=== PATIENT | male | born 1940 | race Two or more races ===

== ENCOUNTER 2022-01-30 16:46 | Inpatient (IN) | payer MEDICARE, OTHER ==
[~2022-01-30] VITALS: Ht 170.2 cm; Wt 96.6 kg
[2022-01-30 18:30] LABS: BASOPHILS % 0.5 % (0.0-2.0); HEMATOCRIT. 42.1 % (42.0-52.0); HEMOGLOBIN. 13.9 g/dL (14.0-18.0); LYMPHOCYTES % 12.6 % (20.0-50.0); MEAN CORPUSCULAR HEMOGLOBIN 32.1 pg (28.0-32.0); MEAN CORPUSCULAR VOLUME 97.1 fL (80.0-94.0); MEAN PLATELET VOLUME 8.7 fl (7.4-10.4); MONOCYTES % 5.5 % (2.0-8.0); NEUTROPHILS % 80.4 % (40.0-76.0); PLATELET 253 x1000/uL (130-400); RED BLOOD CELL COUNT 4.33 mill/uL (4.7-6.1); RED CELL DISTRIBUTION WIDTH 14.7 % (11.6-14.6)
[2022-01-30 18:33] LABS: CHLORIDE 109 mEq/L (98-107)
[2022-01-30 18:36] LABS: PROTHROMBIN TIME 10.7 sec (9.6-11.0)
[2022-01-30 18:41] LABS: ETHANOL BLOOD 20 mg/dL
[2022-01-30] MEDS ORDERED: ACETAMINOPHEN 325MG TABLET PO PRN (21:15)
[2022-01-30] MEDS ORDERED: MAGNESIUM/ALUMINUM HYDROXIDE/SIMETHICONE 30ML UDC PO PRN (21:15)
[2022-01-30] MEDS ORDERED: GUAIFENESIN 200MG/10ML SUGAR FREE UDC PO PRN (21:15)
[2022-01-30] MEDS ORDERED: ONDANSETRON HCL 4MG/2ML INJ IV PRN (21:15)
[2022-01-30 22:15] LABS: PHOSPHORUS 1.4 mg/dL (2.5-4.9)
[2022-01-30 22:52] LABS: VITAMIN B12 SERUM 334 pg/mL (211-911)
[2022-01-30 23:22] LABS: CLARITY URINE CLEAR (CLEAR); COLOR URINE YELLOW (YELLOW); KETONES URINE TRACE (NEGATIVE); LEUKOCYTE ESTERASE URINE NEGATIVE (NEGATIVE); NITRITE URINE NEGATIVE (NEGATIVE); OCCULT BLOOD URINE NEGATIVE (NEGATIVE); PH URINE 5.5 (4.5-8.0); PROTEIN URINE 2+ (NEGATIVE); SPECIFIC GRAVITY URINE 1.021 (1.005-1.030)
[2022-01-30] MEDS ORDERED: ASPIRIN 325MG EC TABLET PO NR (23:30)
[2022-01-31 00:09] LABS: *AMPHETAMINES SCREEN URINE NEGATIVE (NEGATIVE); *BARBITURATES SCREEN URINE NEGATIVE (NEGATIVE); *BENZODIAZEPINES SCREEN URINE NEGATIVE (NEGATIVE); *COCAINE SCREEN URINE NEGATIVE (NEGATIVE); CANNABINOID URINE SCREEN NEGATIVE (NEGATIVE); METHADONE URINE SCREEN NEGATIVE (NEGATIVE); OPIATES URINE SCREEN NEGATIVE (NEGATIVE); PHENCYCLIDINE URINE SCREEN NEGATIVE (NEGATIVE)
[2022-01-31] MEDS ORDERED: AMLODIPINE 10MG TABLET PO ONE (01:15)
[2022-01-31] MEDS ORDERED: AMLODIPINE 5MG TABLET PO NR (01:15)
[2022-01-31 04:56] LABS: BASOPHILS % 0.6 % (0.0-2.0); EOSINOPHILS % 2.5 % (0.0-5.0); HEMATOCRIT. 40.1 % (42.0-52.0); HEMOGLOBIN. 13.5 g/dL (14.0-18.0); LYMPHOCYTES % 19.9 % (20.0-50.0); MEAN CORPUSCULAR VOLUME 95.5 fL (80.0-94.0); MONOCYTES % 9.7 % (2.0-8.0); NEUTROPHILS % 67.3 % (40.0-76.0); RED CELL DISTRIBUTION WIDTH 14.4 % (11.6-14.6)
[2022-01-31 05:22] LABS: CHLORIDE 111 mEq/L (98-107)
[2022-01-31 05:44] LABS: HDL CHOLESTEROL 44 mg/dL (40-59); LDL CHOLESTEROL 64 mg/dL (5-100); T4 FREE 0.87 ng/dL (0.76-1.46)
[2022-01-31 05:46] LABS: D-DIMER 1.84 mg/L FEU (<0.50); PROTHROMBIN TIME 10.8 sec (9.6-11.0)
[2022-01-31 06:07] LABS: CREATINE KINASE MB FRACTION 1.2 ng/mL (0.5-3.6)
[2022-01-31] MEDS: FOLIC ACID 1MG TABLET PO SCH (08:00)
[2022-01-31] MEDS ORDERED: POTASSIUM-SODIUM PHOSPHATE POWDER PACKET PO NR (08:00)
[2022-01-31] MEDS: FAMOTIDINE 20MG TABLET PO SCH ×2 (09:55→22:34)
[2022-01-31] MEDS: ENOXAPARIN 40MG/0.4ML SYR SUBCUT SCH (09:56)
[2022-01-31] MEDS: IPRATROPIUM/ALBUTEROL 0.5-3(2.5)MG/3ML NEB HHN SCH ×3 (10:00→21:07)
[2022-01-31] MEDS ORDERED: DEXTROSE 50% WATER 50ML SYRINGE IV PRN (11:00)
[2022-01-31] MEDS: BLOOD SUGAR DIAGNOSTIC STRIP TEST SCH ×3 (11:30→21:33)
[2022-01-31 12:00] LABS: MEAN PLATELET VOLUME 8.4 fl (7.4-10.4); PLATELET 241 x1000/uL (130-400)
[2022-01-31] MEDS: INSULIN LISPRO 100 UNITS/ML SUBCUT SCH ×3 (12:00→21:00)
[2022-01-31] MEDS ORDERED: SODIUM CHLORIDE 0.45% 1,000 ML IV NR (13:15)
[2022-01-31 14:42] VITALS: BP 138/73
[2022-01-31 14:58] VITALS: BP 138/73
[2022-01-31 16:00] VITALS: BP 140/83
[2022-01-31] MEDS ORDERED: TOPUD PO (16:38)
[2022-01-31] MEDS ORDERED: LISI20TA31 PO (16:38)
[2022-01-31] MEDS ORDERED: TAMS-11 PO (16:38)
[2022-01-31] MEDS ORDERED: LACT1CAP68 PO (16:38)
[2022-01-31] MEDS ORDERED: NETA2.5D EACHEYE (16:43)
[2022-01-31] MEDS ORDERED: DORZ10DR12 LEFTEYE (16:43)
[2022-01-31] MEDS ORDERED: BRIM5DRO6 RIGHTEYE (16:43)
[2022-01-31] MEDS: ASPIRIN 81MG TABLET PO SCH (16:54)
[2022-01-31] MEDS: LISINOPRIL 20MG TABLET PO SCH (16:55)
[2022-01-31 20:00] VITALS: BP 138/71
[2022-01-31] MEDS: ATORVASTATIN CALCIUM 40MG TABLET PO SCH (22:34)
[2022-02-01] VITALS (8 sets, daily range): BP systolic 121–161; BP diastolic 50–98
[2022-02-01] MEDS: IPRATROPIUM/ALBUTEROL 0.5-3(2.5)MG/3ML NEB HHN SCH ×4 (02:53→21:15)
[2022-02-01 06:35] LABS: HEMATOCRIT 39.7 % (42.0-52.0); HEMOGLOBIN 13.1 g/dL (14.0-18.0); MEAN CORPUSCULAR HEMOGLOBIN 31.8 pg (28.0-32.0); MEAN CORPUSCULAR VOLUME 96.4 fL (80.0-94.0); PLATELET 252 x1000/uL (130-400); RED BLOOD CELL COUNT 4.12 mill/uL (4.7-6.1); RED CELL DISTRIBUTION WIDTH 14.5 % (11.6-14.6)
[2022-02-01] MEDS: BLOOD SUGAR DIAGNOSTIC STRIP TEST SCH ×4 (06:40→20:40)
[2022-02-01] MEDS: INSULIN LISPRO 100 UNITS/ML SUBCUT SCH ×4 (07:20→20:42)
[2022-02-01 07:32] LABS: CHLORIDE 107 mEq/L (98-107)
[2022-02-01 07:41] LABS: PHOSPHORUS 2.9 mg/dL (2.5-4.9)
[2022-02-01] MEDS: FAMOTIDINE 20MG TABLET PO SCH ×2 (08:35→20:43)
[2022-02-01] MEDS: ASPIRIN 81MG TABLET PO SCH (08:35)
[2022-02-01] MEDS: FOLIC ACID 1MG TABLET PO SCH (08:35)
[2022-02-01] MEDS: LISINOPRIL 20MG TABLET PO SCH (08:36)
[2022-02-01] MEDS: ENOXAPARIN 40MG/0.4ML SYR SUBCUT SCH (08:36)
[2022-02-01] MEDS: TAMSULOSIN HCL 0.4MG SR CAPSULE PO SCH (13:37)
[2022-02-01] MEDS ORDERED: LIDOCAINE HCL 1% 10 MG/ML 10ML VIAL IJ NR (18:45)
[2022-02-01 20:04] LABS: HEMATOCRIT 46.8 % (42.0-52.0); HEMOGLOBIN 14.9 g/dL (14.0-18.0); MEAN CORPUSCULAR HEMOGLOBIN 31.5 pg (28.0-32.0); MEAN CORPUSCULAR VOLUME 98.8 fL (80.0-94.0); PLATELET 226 x1000/uL (130-400); RED BLOOD CELL COUNT 4.74 mill/uL (4.7-6.1); RED CELL DISTRIBUTION WIDTH 14.7 % (11.6-14.6)
[2022-02-01] MEDS ORDERED: LORAZEPAM 0.5MG TABLET PO PRN (20:15)
[2022-02-01 20:22] LABS: CHLORIDE 108 mEq/L (98-107)
[2022-02-01] MEDS: LEVOFLOXACIN 500MG TABLET PO SCH (20:23)
[2022-02-01] MEDS: SODIUM CHLORIDE 0.45% 1,000 ML IV SCH (20:26)
[2022-02-01] MEDS: ATORVASTATIN CALCIUM 40MG TABLET PO SCH (20:42)
[2022-02-01] MEDS: THIAMINE HCL 100MG TABLET PO SCH (20:43)
[2022-02-01] MEDS: BRIMONIDINE 0.2% OPHTH DROPS 5ML RIGHTEYE SCH (23:27)
[2022-02-01] MEDS: DORZOLAM/TIMOLOL 2.23/0.68% OPHTH DROPS 10ML LEFTEYE SCH (23:29)
[2022-02-01] MEDS: NETARSUDIL MESYLATE 0.02% OP SCH (23:30)
[2022-02-01] MEDS: ACETAMINOPHEN 325MG TABLET PO PRN (23:40)
[2022-02-02] VITALS: BP 145/79
[2022-02-02 04:00] VITALS: BP 138/69
[2022-02-02] MEDS: BLOOD SUGAR DIAGNOSTIC STRIP TEST SCH ×4 (06:04→21:44)
[2022-02-02 06:56] LABS: HEMATOCRIT 39.6 % (42.0-52.0); HEMOGLOBIN 13.3 g/dL (14.0-18.0); MEAN CORPUSCULAR HEMOGLOBIN 32.4 pg (28.0-32.0); MEAN CORPUSCULAR VOLUME 96.3 fL (80.0-94.0); PLATELET 215 x1000/uL (130-400); RED BLOOD CELL COUNT 4.11 mill/uL (4.7-6.1); RED CELL DISTRIBUTION WIDTH 14.4 % (11.6-14.6)
[2022-02-02] MEDS: INSULIN LISPRO 100 UNITS/ML SUBCUT SCH ×4 (07:20→21:00)
[2022-02-02 08:00] VITALS: BP 142/66
[2022-02-02] MEDS: TAMSULOSIN HCL 0.4MG SR CAPSULE PO SCH (08:56)
[2022-02-02] MEDS: FOLIC ACID 1MG TABLET PO SCH (08:56)
[2022-02-02] MEDS: ACETAMINOPHEN 325MG TABLET PO PRN ×2 (08:56→17:37)
[2022-02-02] MEDS: THIAMINE HCL 100MG TABLET PO SCH (08:56)
[2022-02-02] MEDS: LISINOPRIL 20MG TABLET PO SCH (08:56)
[2022-02-02] MEDS: ASPIRIN 81MG TABLET PO SCH (08:56)
[2022-02-02] MEDS: FAMOTIDINE 20MG TABLET PO SCH ×2 (08:56→21:31)
[2022-02-02] MEDS: DORZOLAM/TIMOLOL 2.23/0.68% OPHTH DROPS 10ML LEFTEYE SCH ×2 (08:57→21:31)
[2022-02-02] MEDS: BRIMONIDINE 0.2% OPHTH DROPS 5ML RIGHTEYE SCH ×3 (08:57→16:56)
[2022-02-02] MEDS: IPRATROPIUM/ALBUTEROL 0.5-3(2.5)MG/3ML NEB HHN SCH ×2 (09:31→20:58)
[2022-02-02 12:00] VITALS: BP 123/68
[2022-02-02] MEDS: LEVOFLOXACIN 500MG TABLET PO SCH (12:55)
[2022-02-02] MEDS: SODIUM CHLORIDE 0.45% 1,000 ML IV SCH (12:56)
[2022-02-02 13:06] LABS: VITAMIN D 1-25 DIHYDROXY 61.5 pg/mL (24.8-81.5)
[2022-02-02] MEDS ORDERED: LIDOCAINE HCL 2% JELLY 5ML ONE (14:47)
[2022-02-02 16:00] VITALS: BP 147/72
[2022-02-02 18:36] LABS: HEMATOCRIT 41.6 % (42.0-52.0); HEMOGLOBIN 13.9 g/dL (14.0-18.0)
[2022-02-02 20:00] VITALS: BP 157/74
[2022-02-02] MEDS ORDERED: IBUPROFEN 800MG TABLET PO NR (21:30)
[2022-02-02] MEDS: ATORVASTATIN CALCIUM 40MG TABLET PO SCH (21:30)
[2022-02-02] MEDS: CLONIDINE 0.1MG TABLET PO PRN (21:36)
[2022-02-02] MEDS: NETARSUDIL MESYLATE 0.02% OP SCH (21:43)
[2022-02-03] VITALS (7 sets, daily range): BP systolic 111–152; BP diastolic 54–91
[2022-02-03] MEDS: IPRATROPIUM/ALBUTEROL 0.5-3(2.5)MG/3ML NEB HHN SCH ×4 (01:22→20:36)
[2022-02-03 06:10] LABS: BASOPHILS % 0.5 % (0.0-2.0); EOSINOPHILS % 1.1 % (0.0-5.0); HEMOGLOBIN. 13.3 g/dL (14.0-18.0); MEAN CORPUSCULAR HEMOGLOBIN 31.8 pg (28.0-32.0); MEAN CORPUSCULAR VOLUME 95.6 fL (80.0-94.0); MEAN PLATELET VOLUME 8.2 fl (7.4-10.4); MONOCYTES % 8.5 % (2.0-8.0); NEUTROPHILS % 71.9 % (40.0-76.0); PLATELET 241 x1000/uL (130-400); RED BLOOD CELL COUNT 4.18 mill/uL (4.7-6.1); RED CELL DISTRIBUTION WIDTH 14.4 % (11.6-14.6)
[2022-02-03] MEDS: ACETAMINOPHEN 325MG TABLET PO PRN (06:34)
[2022-02-03] MEDS: INSULIN LISPRO 100 UNITS/ML SUBCUT SCH ×4 (06:52→22:24)
[2022-02-03] MEDS: BLOOD SUGAR DIAGNOSTIC STRIP TEST SCH ×4 (06:52→22:00)
[2022-02-03] MEDS ORDERED: SODIUM CHLORIDE 0.45% 1,000 ML IV ONE (07:45)
[2022-02-03] MEDS: FOLIC ACID 1MG TABLET PO SCH (09:40)
[2022-02-03] MEDS: ASPIRIN 81MG TABLET PO SCH (09:40)
[2022-02-03] MEDS: TAMSULOSIN HCL 0.4MG SR CAPSULE PO SCH (09:40)
[2022-02-03] MEDS: LISINOPRIL 20MG TABLET PO SCH (09:40)
[2022-02-03] MEDS: DOCUSATE SODIUM 100MG CAPSULE PO PRN (09:40)
[2022-02-03] MEDS: FAMOTIDINE 20MG TABLET PO SCH (09:41)
[2022-02-03] MEDS: THIAMINE HCL 100MG TABLET PO SCH (09:41)
[2022-02-03] MEDS: BRIMONIDINE 0.2% OPHTH DROPS 5ML RIGHTEYE SCH ×3 (09:42→17:54)
[2022-02-03] MEDS: DORZOLAM/TIMOLOL 2.23/0.68% OPHTH DROPS 10ML LEFTEYE SCH ×2 (09:42→22:24)
[2022-02-03] MEDS ORDERED: NALOXONE HCL 0.4MG/ML VIAL IV PRN (11:45)
[2022-02-03] MEDS: LEVOFLOXACIN 250MG TABLET PO SCH (11:49)
[2022-02-03] MEDS: HYDROCODONE/ACETAMINOPHEN 5/325MG TABLET PO PRN ×2 (11:49→22:25)
[2022-02-03] MEDS: ATORVASTATIN CALCIUM 40MG TABLET PO SCH (22:24)
[2022-02-03] MEDS: NETARSUDIL MESYLATE 0.02% OP SCH (22:24)
[2022-02-04] VITALS: BP 116/56
[2022-02-04] MEDS: IPRATROPIUM/ALBUTEROL 0.5-3(2.5)MG/3ML NEB HHN SCH ×4 (02:08→21:20)
[2022-02-04 04:00] VITALS: BP 134/61
[2022-02-04 07:00] LABS: BASOPHILS % 0.6 % (0.0-2.0); EOSINOPHILS % 2.6 % (0.0-5.0); HEMATOCRIT. 40.9 % (42.0-52.0); HEMOGLOBIN. 13.5 g/dL (14.0-18.0); LYMPHOCYTES % 23.7 % (20.0-50.0); MEAN CORPUSCULAR HEMOGLOBIN 32.1 pg (28.0-32.0); MEAN CORPUSCULAR VOLUME 96.9 fL (80.0-94.0); MEAN PLATELET VOLUME 8.5 fl (7.4-10.4); MONOCYTES % 9.7 % (2.0-8.0); NEUTROPHILS % 63.4 % (40.0-76.0); PLATELET 245 x1000/uL (130-400); RED BLOOD CELL COUNT 4.22 mill/uL (4.7-6.1); RED CELL DISTRIBUTION WIDTH 14.4 % (11.6-14.6)
[2022-02-04 07:06] LABS: PHOSPHORUS 3.7 mg/dL (2.5-4.9)
[2022-02-04] MEDS: INSULIN LISPRO 100 UNITS/ML SUBCUT SCH ×4 (07:20→20:30)
[2022-02-04] MEDS: BLOOD SUGAR DIAGNOSTIC STRIP TEST SCH ×4 (07:26→20:30)
[2022-02-04 08:00] VITALS: BP 150/71
[2022-02-04] MEDS: ASPIRIN 81MG TABLET PO SCH (09:01)
[2022-02-04] MEDS: DORZOLAM/TIMOLOL 2.23/0.68% OPHTH DROPS 10ML LEFTEYE SCH ×2 (09:01→20:30)
[2022-02-04] MEDS: BRIMONIDINE 0.2% OPHTH DROPS 5ML RIGHTEYE SCH ×3 (09:01→17:55)
[2022-02-04] MEDS: FAMOTIDINE 20MG TABLET PO SCH (09:02)
[2022-02-04] MEDS: LISINOPRIL 20MG TABLET PO SCH (09:02)
[2022-02-04] MEDS: FOLIC ACID 1MG TABLET PO SCH (09:02)
[2022-02-04] MEDS: THIAMINE HCL 100MG TABLET PO SCH (09:02)
[2022-02-04] MEDS: TAMSULOSIN HCL 0.4MG SR CAPSULE PO SCH (09:02)
[2022-02-04] MEDS: HYDROCODONE/ACETAMINOPHEN 5/325MG TABLET PO PRN ×2 (10:25→20:30)
[2022-02-04] MEDS ORDERED: SODIUM CHLORIDE 0.45% 1,000 ML IV ONE (10:30)
[2022-02-04 12:00] VITALS: BP 132/65
[2022-02-04] MEDS: LEVOFLOXACIN 250MG TABLET PO SCH (14:08)
[2022-02-04 16:00] VITALS: BP 141/66
[2022-02-04 20:00] VITALS: BP 138/64
[2022-02-04] MEDS: NETARSUDIL MESYLATE 0.02% OP SCH (20:30)
[2022-02-04] MEDS: ATORVASTATIN CALCIUM 40MG TABLET PO SCH (20:30)
[2022-02-04] MEDS: DEXTROSE 5% WATER 1,000 ML IV SCH (23:06)
[2022-02-05] VITALS: BP 135/62
[2022-02-05] MEDS: IPRATROPIUM/ALBUTEROL 0.5-3(2.5)MG/3ML NEB HHN SCH ×4 (02:40→20:39)
[2022-02-05] MEDS: HYDROCODONE/ACETAMINOPHEN 5/325MG TABLET PO PRN ×3 (03:04→17:27)
[2022-02-05 04:00] VITALS: BP 129/61
[2022-02-05] MEDS: INSULIN LISPRO 100 UNITS/ML SUBCUT SCH ×4 (06:21→20:28)
[2022-02-05] MEDS: BLOOD SUGAR DIAGNOSTIC STRIP TEST SCH ×4 (06:21→20:28)
[2022-02-05 07:15] LABS: BASOPHILS % 0.5 % (0.0-2.0); HEMOGLOBIN. 12.6 g/dL (14.0-18.0); LYMPHOCYTES % 14.8 % (20.0-50.0); MEAN CORPUSCULAR HEMOGLOBIN 32.4 pg (28.0-32.0); MEAN CORPUSCULAR VOLUME 95.4 fL (80.0-94.0); MEAN PLATELET VOLUME 8.2 fl (7.4-10.4); MONOCYTES % 11.5 % (2.0-8.0); NEUTROPHILS % 70.2 % (40.0-76.0); PLATELET 220 x1000/uL (130-400); RED BLOOD CELL COUNT 3.87 mill/uL (4.7-6.1); RED CELL DISTRIBUTION WIDTH 14.3 % (11.6-14.6)
[2022-02-05 08:00] VITALS: BP 137/73
[2022-02-05] MEDS: TAMSULOSIN HCL 0.4MG SR CAPSULE PO SCH (08:32)
[2022-02-05] MEDS: THIAMINE HCL 100MG TABLET PO SCH (08:32)
[2022-02-05] MEDS: FOLIC ACID 1MG TABLET PO SCH (08:32)
[2022-02-05] MEDS: LISINOPRIL 20MG TABLET PO SCH (08:32)
[2022-02-05] MEDS: ASPIRIN 81MG TABLET PO SCH (08:32)
[2022-02-05] MEDS: FAMOTIDINE 20MG TABLET PO SCH (08:32)
[2022-02-05] MEDS: BRIMONIDINE 0.2% OPHTH DROPS 5ML RIGHTEYE SCH ×3 (09:18→17:27)
[2022-02-05] MEDS: DORZOLAM/TIMOLOL 2.23/0.68% OPHTH DROPS 10ML LEFTEYE SCH ×2 (09:18→20:28)
[2022-02-05 12:00] VITALS: BP 115/53
[2022-02-05] MEDS ORDERED: SODIUM CHLORIDE 0.45% 1,000 ML IV ONE (12:00)
[2022-02-05] MEDS: DEXTROSE 5% WATER 1,000 ML IV SCH (15:54)
[2022-02-05 16:00] VITALS: BP 124/61
[2022-02-05 20:00] VITALS: BP 134/81
[2022-02-05] MEDS: NETARSUDIL MESYLATE 0.02% OP SCH (20:28)
[2022-02-05] MEDS: ATORVASTATIN CALCIUM 40MG TABLET PO SCH (20:28)
[2022-02-05] MEDS: MORPHINE SULFATE 2 MG/ML CPJ (NOT FOR IM USE) IV PRN (20:28)
[2022-02-06] VITALS: BP 156/75
[2022-02-06] MEDS: DEXTROSE 5% WATER 1,000 ML IV SCH ×2 (01:44→17:07)
[2022-02-06] MEDS: IPRATROPIUM/ALBUTEROL 0.5-3(2.5)MG/3ML NEB HHN SCH ×4 (01:48→21:05)
[2022-02-06 04:00] VITALS: BP 144/62
[2022-02-06 05:30] LABS: HEMOGLOBIN 13.1 g/dL (14.0-18.0); MEAN CORPUSCULAR VOLUME 95.4 fL (80.0-94.0); PLATELET 206 x1000/uL (130-400); RED BLOOD CELL COUNT 4.09 mill/uL (4.7-6.1); RED CELL DISTRIBUTION WIDTH 14.4 % (11.6-14.6)
[2022-02-06 05:36] LABS: CHLORIDE 106 mEq/L (98-107)
[2022-02-06] MEDS: INSULIN LISPRO 100 UNITS/ML SUBCUT SCH ×4 (06:39→21:00)
[2022-02-06] MEDS: BLOOD SUGAR DIAGNOSTIC STRIP TEST SCH ×4 (06:39→21:08)
[2022-02-06 08:00] VITALS: BP 144/82
[2022-02-06] MEDS: BRIMONIDINE 0.2% OPHTH DROPS 5ML RIGHTEYE SCH ×3 (08:53→17:07)
[2022-02-06] MEDS: DORZOLAM/TIMOLOL 2.23/0.68% OPHTH DROPS 10ML LEFTEYE SCH ×2 (08:53→21:13)
[2022-02-06] MEDS: LISINOPRIL 20MG TABLET PO SCH (08:54)
[2022-02-06] MEDS: THIAMINE HCL 100MG TABLET PO SCH (08:54)
[2022-02-06] MEDS: HYDROCODONE/ACETAMINOPHEN 5/325MG TABLET PO PRN (08:54)
[2022-02-06] MEDS: TAMSULOSIN HCL 0.4MG SR CAPSULE PO SCH (08:54)
[2022-02-06] MEDS: FOLIC ACID 1MG TABLET PO SCH (08:54)
[2022-02-06] MEDS: ASPIRIN 81MG TABLET PO SCH (08:54)
[2022-02-06] MEDS: FAMOTIDINE 20MG TABLET PO SCH (08:56)
[2022-02-06] MEDS: DOCUSATE SODIUM 100MG CAPSULE PO PRN (10:44)
[2022-02-06 12:00] VITALS: BP 107/54
[2022-02-06 16:00] VITALS: BP 124/68
[2022-02-06 20:00] VITALS: BP 118/69
[2022-02-06] MEDS: ATORVASTATIN CALCIUM 40MG TABLET PO SCH (21:13)
[2022-02-06] MEDS: NETARSUDIL MESYLATE 0.02% OP SCH (21:15)
[2022-02-07] VITALS: BP 130/72
[2022-02-07] MEDS: IPRATROPIUM/ALBUTEROL 0.5-3(2.5)MG/3ML NEB HHN SCH ×4 (01:17→21:53)
[2022-02-07] MEDS: HYDROCODONE/ACETAMINOPHEN 5/325MG TABLET PO PRN (01:36)
[2022-02-07 04:00] VITALS: BP 130/67
[2022-02-07] MEDS: DEXTROSE 5% WATER 1,000 ML IV SCH (04:20)
[2022-02-07 05:58] LABS: CHLORIDE 107 mEq/L (98-107)
[2022-02-07 06:14] LABS: BASOPHILS % 0.5 % (0.0-2.0); EOSINOPHILS % 2.6 % (0.0-5.0); HEMATOCRIT. 38.1 % (42.0-52.0); HEMOGLOBIN. 12.8 g/dL (14.0-18.0); LYMPHOCYTES % 29.6 % (20.0-50.0); MEAN CORPUSCULAR HEMOGLOBIN 32.2 pg (28.0-32.0); MEAN CORPUSCULAR VOLUME 95.6 fL (80.0-94.0); MEAN PLATELET VOLUME 8.6 fl (7.4-10.4); MONOCYTES % 14.2 % (2.0-8.0); NEUTROPHILS % 53.1 % (40.0-76.0); PLATELET 200 x1000/uL (130-400); RED BLOOD CELL COUNT 3.98 mill/uL (4.7-6.1); RED CELL DISTRIBUTION WIDTH 14.3 % (11.6-14.6)
[2022-02-07] MEDS: BLOOD SUGAR DIAGNOSTIC STRIP TEST SCH ×4 (06:36→21:28)
[2022-02-07] MEDS: INSULIN LISPRO 100 UNITS/ML SUBCUT SCH ×4 (07:20→21:00)
[2022-02-07] MEDS: FAMOTIDINE 20MG TABLET PO SCH (07:55)
[2022-02-07] MEDS: FOLIC ACID 1MG TABLET PO SCH (07:55)
[2022-02-07] MEDS: TAMSULOSIN HCL 0.4MG SR CAPSULE PO SCH (07:55)
[2022-02-07] MEDS: DOCUSATE SODIUM 100MG CAPSULE PO PRN (07:55)
[2022-02-07] MEDS: THIAMINE HCL 100MG TABLET PO SCH (07:55)
[2022-02-07] MEDS: ASPIRIN 81MG TABLET PO SCH (07:55)
[2022-02-07] MEDS: LISINOPRIL 20MG TABLET PO SCH (07:56)
[2022-02-07] MEDS: BRIMONIDINE 0.2% OPHTH DROPS 5ML RIGHTEYE SCH ×3 (07:57→16:54)
[2022-02-07] MEDS: DORZOLAM/TIMOLOL 2.23/0.68% OPHTH DROPS 10ML LEFTEYE SCH ×2 (07:57→21:30)
[2022-02-07 08:30] VITALS: BP 145/79
[2022-02-07] MEDS ORDERED: DEXT 5%/0.45% NACL 1000ML 1,000 ML IV ONE (10:30)
[2022-02-07 11:19] VITALS: BP 129/66
[2022-02-07 15:50] VITALS: BP 125/63
[2022-02-07 19:42] LABS: CLARITY URINE CLEAR (CLEAR); COLOR URINE YELLOW (YELLOW); KETONES URINE NEGATIVE (NEGATIVE); LEUKOCYTE ESTERASE URINE TRACE (NEGATIVE); NITRITE URINE NEGATIVE (NEGATIVE); OCCULT BLOOD URINE 2+ (NEGATIVE); PH URINE 6.5 (4.5-8.0); PROTEIN URINE TRACE (NEGATIVE); SPECIFIC GRAVITY URINE 1.009 (1.005-1.030); UROBILINOGEN URINE 0.2 E.U./dL (0.2-1.0)
[2022-02-07 20:00] VITALS: BP 98/66
[2022-02-07] MEDS: ATORVASTATIN CALCIUM 40MG TABLET PO SCH (21:28)
[2022-02-07] MEDS: NETARSUDIL MESYLATE 0.02% OP SCH (21:29)
[2022-02-08] VITALS: BP 122/65
[2022-02-08] MEDS: IPRATROPIUM/ALBUTEROL 0.5-3(2.5)MG/3ML NEB HHN SCH ×4 (01:30→21:07)
[2022-02-08 04:00] VITALS: BP 140/60
[2022-02-08] MEDS: BLOOD SUGAR DIAGNOSTIC STRIP TEST SCH ×4 (06:56→20:25)
[2022-02-08] MEDS: INSULIN LISPRO 100 UNITS/ML SUBCUT SCH ×4 (07:20→20:25)
[2022-02-08 08:00] VITALS: BP 154/75
[2022-02-08] MEDS: LISINOPRIL 20MG TABLET PO SCH (08:04)
[2022-02-08] MEDS: THIAMINE HCL 100MG TABLET PO SCH (08:04)
[2022-02-08] MEDS: ASPIRIN 81MG TABLET PO SCH (08:04)
[2022-02-08] MEDS: BRIMONIDINE 0.2% OPHTH DROPS 5ML RIGHTEYE SCH ×2 (08:04→20:00)
[2022-02-08] MEDS: FAMOTIDINE 20MG TABLET PO SCH (08:04)
[2022-02-08] MEDS: FOLIC ACID 1MG TABLET PO SCH (08:04)
[2022-02-08] MEDS: TAMSULOSIN HCL 0.4MG SR CAPSULE PO SCH (08:04)
[2022-02-08] MEDS: DORZOLAM/TIMOLOL 2.23/0.68% OPHTH DROPS 10ML LEFTEYE SCH ×2 (08:05→21:11)
[2022-02-08] MEDS: HYDROCODONE/ACETAMINOPHEN 5/325MG TABLET PO PRN (08:10)
[2022-02-08] MEDS ORDERED: MORPHINE SULFATE 2 MG/ML CPJ (NOT FOR IM USE) IV PRN (09:45)
[2022-02-08] MEDS: MORPHINE SULFATE 2 MG/ML CPJ (NOT FOR IM USE) IV PRN (11:47)
[2022-02-08 12:00] VITALS: BP 138/72
[2022-02-08] MEDS ORDERED: SODIUM CHLORIDE 0.45% 1,000 ML IV ONE (14:30)
[2022-02-08 16:00] VITALS: BP 119/72
[2022-02-08] MEDS ORDERED: PROPOFOL 200MG/20ML VIAL IV ONE (16:45)
[2022-02-08] MEDS ORDERED: ROCURONIUM BROMIDE 10MG/ML VIAL 5ML IV ONE (16:47)
[2022-02-08] MEDS ORDERED: MIDAZOLAM HCL 2 MG/2 ML VIAL ONE (16:48)
[2022-02-08] MEDS ORDERED: CEFAZOLIN SODIUM 1000MG/VIAL ONE (16:57)
[2022-02-08] MEDS ORDERED: DEXAMETHASONE 4MG/ML 1ML VIAL ONE (16:57)
[2022-02-08] MEDS ORDERED: ONDANSETRON HCL 4MG/2ML INJ ONE (16:57)
[2022-02-08] MEDS ORDERED: FENTANYL CITRATE/PF 50MCG/ML 2ML VIAL ONE (16:58)
[2022-02-08] MEDS ORDERED: PHENYLEPHRINE HCL 10 MG/ML 1ML (IV VIAL) IV ONE (17:02)
[2022-02-08 20:00] VITALS: BP 154/86
[2022-02-08] MEDS: ATORVASTATIN CALCIUM 40MG TABLET PO SCH (21:07)
[2022-02-08] MEDS: NETARSUDIL MESYLATE 0.02% OP SCH (21:12)
[2022-02-09] VITALS: BP 179/101
[2022-02-09] MEDS: CLONIDINE 0.1MG TABLET PO PRN (01:07)
[2022-02-09] MEDS: IPRATROPIUM/ALBUTEROL 0.5-3(2.5)MG/3ML NEB HHN SCH ×4 (02:21→21:04)
[2022-02-09 04:00] VITALS: BP 149/77
[2022-02-09] MEDS: BLOOD SUGAR DIAGNOSTIC STRIP TEST SCH ×4 (05:56→20:33)
[2022-02-09] MEDS: INSULIN LISPRO 100 UNITS/ML SUBCUT SCH ×4 (06:23→20:33)
[2022-02-09 08:00] VITALS: BP 156/96
[2022-02-09] MEDS: ASPIRIN 81MG TABLET PO SCH (09:00)
[2022-02-09] MEDS: DORZOLAM/TIMOLOL 2.23/0.68% OPHTH DROPS 10ML LEFTEYE SCH ×2 (09:00→21:20)
[2022-02-09] MEDS: BRIMONIDINE 0.2% OPHTH DROPS 5ML RIGHTEYE SCH ×3 (09:00→16:58)
[2022-02-09] MEDS: FOLIC ACID 1MG TABLET PO SCH (09:31)
[2022-02-09] MEDS: FAMOTIDINE 20MG TABLET PO SCH (09:31)
[2022-02-09] MEDS: THIAMINE HCL 100MG TABLET PO SCH (09:31)
[2022-02-09] MEDS: TAMSULOSIN HCL 0.4MG SR CAPSULE PO SCH (09:31)
[2022-02-09] MEDS: LISINOPRIL 20MG TABLET PO SCH (09:31)
[2022-02-09 12:00] VITALS: BP 140/72
[2022-02-09 13:07] LABS: BASOPHILS % 0.4 % (0.0-2.0); EOSINOPHILS % 1.6 % (0.0-5.0); HEMATOCRIT. 40.3 % (42.0-52.0); HEMOGLOBIN. 13.4 g/dL (14.0-18.0); LYMPHOCYTES % 15.7 % (20.0-50.0); MEAN CORPUSCULAR HEMOGLOBIN 31.9 pg (28.0-32.0); MEAN CORPUSCULAR VOLUME 95.6 fL (80.0-94.0); MEAN PLATELET VOLUME 8.4 fl (7.4-10.4); MONOCYTES % 10.5 % (2.0-8.0); NEUTROPHILS % 71.8 % (40.0-76.0); PLATELET 201 x1000/uL (130-400); RED BLOOD CELL COUNT 4.21 mill/uL (4.7-6.1); RED CELL DISTRIBUTION WIDTH 14.5 % (11.6-14.6)
[2022-02-09 13:35] LABS: CHLORIDE 107 mEq/L (98-107)
[2022-02-09 16:00] VITALS: BP 147/77
[2022-02-09 20:00] VITALS: BP 125/62
[2022-02-09] MEDS: ATORVASTATIN CALCIUM 40MG TABLET PO SCH (21:20)
[2022-02-09] MEDS: NETARSUDIL MESYLATE 0.02% OP SCH (21:20)
[2022-02-10] VITALS: BP 138/74
[2022-02-10] MEDS: IPRATROPIUM/ALBUTEROL 0.5-3(2.5)MG/3ML NEB HHN SCH ×3 (02:04→14:30)
[2022-02-10 04:00] VITALS: BP 163/85
[2022-02-10] MEDS: CLONIDINE 0.1MG TABLET PO PRN (05:40)
[2022-02-10] MEDS: BLOOD SUGAR DIAGNOSTIC STRIP TEST SCH ×4 (05:56→21:15)
[2022-02-10] MEDS: INSULIN LISPRO 100 UNITS/ML SUBCUT SCH ×4 (06:10→21:00)
[2022-02-10 08:00] VITALS: BP 129/62
[2022-02-10] MEDS: TAMSULOSIN HCL 0.4MG SR CAPSULE PO SCH (09:15)
[2022-02-10] MEDS: ASPIRIN 81MG TABLET PO SCH (09:15)
[2022-02-10] MEDS: FOLIC ACID 1MG TABLET PO SCH (09:16)
[2022-02-10] MEDS: THIAMINE HCL 100MG TABLET PO SCH (09:16)
[2022-02-10] MEDS: FAMOTIDINE 20MG TABLET PO SCH (09:16)
[2022-02-10] MEDS: LISINOPRIL 20MG TABLET PO SCH (09:16)
[2022-02-10] MEDS: DORZOLAM/TIMOLOL 2.23/0.68% OPHTH DROPS 10ML LEFTEYE SCH ×2 (10:09→21:14)
[2022-02-10] MEDS: BRIMONIDINE 0.2% OPHTH DROPS 5ML RIGHTEYE SCH ×3 (10:09→18:20)
[2022-02-10] MEDS ORDERED: *PATIENT'S OWN MEDICATION STORAGE XX SCH (11:45)
[2022-02-10] MEDS ORDERED: NALOXONE HCL 0.4MG/ML VIAL IV PRN (11:45)
[2022-02-10 12:00] VITALS: BP 157/73
[2022-02-10 16:00] VITALS: BP 123/65
[2022-02-10 20:00] VITALS: BP 135/64
[2022-02-10] MEDS: NETARSUDIL MESYLATE 0.02% OP SCH (21:00)
[2022-02-10] MEDS: ATORVASTATIN CALCIUM 40MG TABLET PO SCH (21:15)
[2022-02-10] MEDS: OXYBUTYNIN CHLORIDE 5MG TABLET PO SCH (21:15)
[2022-02-11] VITALS (7 sets, daily range): BP systolic 112–148; BP diastolic 63–66
[2022-02-11] MEDS: IPRATROPIUM/ALBUTEROL 0.5-3(2.5)MG/3ML NEB HHN SCH ×5 (02:05→21:35)
[2022-02-11 07:09] LABS: BASOPHILS % 0.7 % (0.0-2.0); EOSINOPHILS % 3.3 % (0.0-5.0); HEMATOCRIT. 38.9 % (42.0-52.0); HEMOGLOBIN. 13.2 g/dL (14.0-18.0); LYMPHOCYTES % 23.8 % (20.0-50.0); MEAN CORPUSCULAR VOLUME 94.4 fL (80.0-94.0); MEAN PLATELET VOLUME 8.9 fl (7.4-10.4); MONOCYTES % 10.2 % (2.0-8.0); PLATELET 195 x1000/uL (130-400); RED BLOOD CELL COUNT 4.13 mill/uL (4.7-6.1); RED CELL DISTRIBUTION WIDTH 14.4 % (11.6-14.6)
[2022-02-11] MEDS: INSULIN LISPRO 100 UNITS/ML SUBCUT SCH ×4 (07:10→21:00)
[2022-02-11] MEDS: BLOOD SUGAR DIAGNOSTIC STRIP TEST SCH ×4 (07:26→21:09)
[2022-02-11 08:52] LABS: CHLORIDE 108 mEq/L (98-107)
[2022-02-11 08:58] LABS: PHOSPHORUS 2.8 mg/dL (2.5-4.9)
[2022-02-11] MEDS: FAMOTIDINE 20MG TABLET PO SCH (09:33)
[2022-02-11] MEDS: THIAMINE HCL 100MG TABLET PO SCH (09:33)
[2022-02-11] MEDS: TAMSULOSIN HCL 0.4MG SR CAPSULE PO SCH (09:33)
[2022-02-11] MEDS: FOLIC ACID 1MG TABLET PO SCH (09:33)
[2022-02-11] MEDS: LISINOPRIL 20MG TABLET PO SCH (09:33)
[2022-02-11] MEDS: ASPIRIN 81MG TABLET PO SCH (09:33)
[2022-02-11] MEDS: DORZOLAM/TIMOLOL 2.23/0.68% OPHTH DROPS 10ML LEFTEYE SCH ×2 (09:34→21:09)
[2022-02-11] MEDS: BRIMONIDINE 0.2% OPHTH DROPS 5ML RIGHTEYE SCH ×3 (09:34→17:26)
[2022-02-11] MEDS: OXYBUTYNIN CHLORIDE 5MG TABLET PO SCH ×2 (09:47→21:09)
[2022-02-11] MEDS: NETARSUDIL MESYLATE 0.02% OP SCH (21:00)
[2022-02-11] MEDS: ATORVASTATIN CALCIUM 40MG TABLET PO SCH (21:09)
[2022-02-12] VITALS: BP 132/62
[2022-02-12] MEDS: IPRATROPIUM/ALBUTEROL 0.5-3(2.5)MG/3ML NEB HHN SCH ×3 (02:55→15:15)
[2022-02-12 04:00] VITALS: BP 133/52
[2022-02-12] MEDS: INSULIN LISPRO 100 UNITS/ML SUBCUT SCH ×2 (05:38→12:10)
[2022-02-12] MEDS: BLOOD SUGAR DIAGNOSTIC STRIP TEST SCH ×2 (05:38→11:40)
[2022-02-12 08:00] VITALS: BP 106/58
[2022-02-12] MEDS: OXYBUTYNIN CHLORIDE 5MG TABLET PO SCH (08:57)
[2022-02-12] MEDS: TAMSULOSIN HCL 0.4MG SR CAPSULE PO SCH (08:57)
[2022-02-12] MEDS: ASPIRIN 81MG TABLET PO SCH (08:57)
[2022-02-12] MEDS: FOLIC ACID 1MG TABLET PO SCH (08:57)
[2022-02-12] MEDS: FAMOTIDINE 20MG TABLET PO SCH (08:57)
[2022-02-12] MEDS: LISINOPRIL 20MG TABLET PO SCH (08:57)
[2022-02-12] MEDS: THIAMINE HCL 100MG TABLET PO SCH (09:02)
[2022-02-12] MEDS: BRIMONIDINE 0.2% OPHTH DROPS 5ML RIGHTEYE SCH ×2 (09:23→13:17)
[2022-02-12] MEDS: DORZOLAM/TIMOLOL 2.23/0.68% OPHTH DROPS 10ML LEFTEYE SCH (09:23)
== END 2022-02-12 17:29 | disposition home health service (06) | DRG 204 ==
LOC: ER 16:46 → EDBD 16:46 → MICUSO 19:03 → EDBEDREQTM 19:19 → EDBEDREQ 19:19 → 3WST 01-31 14:33 → 7EST 02-08 17:57
PROVIDERS: ADMIT Internal Medicine; ATTEND Internal Medicine
PROC: 4A00X4Z Measurement of Central Nervous Electrical Activity, External Approach (ICD-10-PCS; 2022-02-01)
PROC: 0TJB8ZZ Inspection of Bladder, Via Natural or Artificial Opening Endoscopic (ICD-10-PCS; principal; 2022-02-08)
PROC: 0T9B70Z Drainage of Bladder with Drainage Device, Via Natural or Artificial Opening (ICD-10-PCS; 2022-02-08)
DX: I95.1 Orthostatic hypotension (principal); N17.0 Acute kidney failure with tubular necrosis; U07.1 COVID-19; E44.1 Mild protein-calorie malnutrition; D52.9 Folate deficiency anemia, unspecified; I12.9 Hypertensive chronic kidney disease with stage 1 through stage 4 chronic kidney disease, or unspecified chronic kidney disease; E88.09 Other disorders of plasma-protein metabolism, not elsewhere classified; E83.39 Other disorders of phosphorus metabolism; E11.22 Type 2 diabetes mellitus with diabetic chronic kidney disease; E78.00 Pure hypercholesterolemia, unspecified; G47.33 Obstructive sleep apnea (adult) (pediatric); H40.9 Unspecified glaucoma; E86.0 Dehydration; M47.9 Spondylosis, unspecified; N40.1 Benign prostatic hyperplasia with lower urinary tract symptoms; R33.8 Other retention of urine; N18.9 Chronic kidney disease, unspecified; H54.7 Unspecified visual loss; R31.0 Gross hematuria; E66.9 Obesity, unspecified; N20.0 Calculus of kidney; N32.3 Diverticulum of bladder; K57.30 Diverticulosis of large intestine without perforation or abscess without bleeding; K86.9 Disease of pancreas, unspecified; D63.1 Anemia in chronic kidney disease; E78.5 Hyperlipidemia, unspecified; Z85.46 Personal history of malignant neoplasm of prostate; Z79.82 Long term (current) use of aspirin; Z82.49 Family history of ischemic heart disease and other diseases of the circulatory system; Z79.84 Long term (current) use of oral hypoglycemic drugs; Z79.899 Other long term (current) drug therapy; Z79.4 Long term (current) use of insulin; Z68.33 Body mass index [BMI] 33.0-33.9, adult
CPT/HCPCS: 36415; 71045; 74176; 76770; 76872; 80048; 80053; 80061; 80305; 80320; 81003; 82550; 82553; 82607; 82652; 82746; 82962; 83036; 83735; 83880; 84100; 84153; 84439; 84443; 84481; 84484; 85014; 85018; 85025; 85027; 85379; 85651; 86430; 87426; 93005; 93306; 93880; 93970; 94640; 95816; 97162; 97166; 97535; 99285; J0690; J1100; J1650; J2250; J2270; J2370; J2405; J2704; J3010; J3490; J7070; G0103; G0480